=== PATIENT | female | born 1980 | race Caucasian/White ===

== ENCOUNTER 2018-12-05 16:17 | Emergency (ER) | payer OTHER, BC ==
[~2018-12-05] VITALS: Ht 170.2 cm; Wt 153.6 kg
[2018-12-05 16:41] VITALS: BP 138/102
[2018-12-05] MEDS ORDERED: ibuprofen tablet 400 MG TABLET PO ONE (17:45)
== END 2018-12-05 18:38 | disposition home or self-care (01) ==
LOC: ER 16:18
DX: S16.1XXA Strain of muscle, fascia and tendon at neck level, initial encounter (principal); S13.4XXA Sprain of ligaments of cervical spine, initial encounter; M54.5 Low back pain; E11.9 Type 2 diabetes mellitus without complications; V49.88XA Car occupant (driver) (passenger) injured in other specified transport accidents, initial encounter; Y93.89 Activity, other specified; Y92.413 State road as the place of occurrence of the external cause; Y99.9 Unspecified external cause status
CPT/HCPCS: 99282

== ENCOUNTER 2019-04-23 11:51 | Emergency (ER) | payer BC, OTHER ==
[~2019-04-23] VITALS: Ht 165.1 cm; Wt 134.0 kg
[2019-04-23 11:55] VITALS: BP 165/106
[2019-04-23] MEDS ORDERED: SULF1TAB49 PO (13:22)
[2019-04-23] MEDS ORDERED: CEPH500C5 PO (13:22)
[2019-04-23] MEDS ORDERED: IBUP-1984 PO (13:30)
== END 2019-04-23 13:44 | disposition home or self-care (01) ==
LOC: ER 11:52
DX: L02.212 Cutaneous abscess of back [any part, except buttock and flank] (principal); L03.312 Cellulitis of back [any part except buttock and flank]; E11.9 Type 2 diabetes mellitus without complications
CPT/HCPCS: 99284

== ENCOUNTER 2019-11-10 04:07 | Outpatient (CLI) | payer BC | END 2019-11-10 23:59 | disposition home or self-care (01) | LOC: DIABETIC 04:07 | PROVIDERS: ATTEND Specialist | DX: E11.65 Type 2 diabetes mellitus with hyperglycemia (principal); Z79.84 Long term (current) use of oral hypoglycemic drugs | CPT/HCPCS: G0108 ==

== ENCOUNTER 2022-11-10 20:31 | Emergency (ER) | payer BC ==
[~2022-11-10] VITALS: Ht 170.2 cm; Wt 168.8 kg
[2022-11-10 21:00] LABS: BASOPHILS # (AUTO) 0.2 X10'3 (0-0.2); BASOPHILS % (AUTO) 1.1 % (0-1); EOSINOPHILS # (AUTO) 0.2 X10'3 (0-0.9); EOSINOPHILS % (AUTO) 1.4 % (0-6); HEMATOCRIT 37.4 % (35.0-45.0); HEMOGLOBIN 12.7 g/dl (12.0-16.0); LYMPHOCYTES % (AUTO) 20.8 % (21-51); MEAN CORPUSCULAR HEMOGLOBIN 27.8 PG (27.0-31.0); MEAN CORPUSCULAR HGB CONC 33.9 g/dL (33.0-36.5); MEAN CORPUSCULAR VOLUME 82.2 FL (78-98); MEAN PLATELET VOLUME 7.6 FL (7.4-10.4); MONOCYTES % (AUTO) 6.6 % (2-12); NEUTROPHILS # (AUTO) 10.1 X10'3 (1.8-7.7); NEUTROPHILS % (AUTO) 70.1 % (42-75); PLATELET COUNT 361 X10'3 (140-440); RED BLOOD COUNT 4.55 X10'6 (4.20-5.60); RED CELL DISTRIBUTION WIDTH 16.2 % (11.5-14.5); WHITE BLOOD COUNT 14.4 X10'3 (4.5-11.0)
[2022-11-10 21:07] LABS: ALANINE AMINOTRANSFERASE 44 U/L (12-78); ALBUMIN 3.2 G/DL (3.4-5.0); ALBUMIN/GLOBULIN RATIO 0.8 (1.1-1.5); ALKALINE PHOSPHATASE 61 IU/L (46-116); ANION GAP 8 (8-16); ASPARTATE AMINO TRANSFERASE 25 U/L (10-37); BILIRUBIN,TOTAL 0.3 MG/DL (0.1-1.0); BLOOD UREA NITROGEN 12 MG/DL (7-18); BUN/CREATININE RATIO 13.2 (6.6-38.0); CALCIUM 9.4 MG/DL (8.5-10.1); CHLORIDE 99 MMOL/L (99-107); CREATININE 0.91 MG/DL (0.40-0.90); GLUCOSE 164 MG/DL (70-104); POTASSIUM 3.6 MMOL/L (3.5-5.1); SODIUM 134 MMOL/L (135-145); TOTAL PROTEIN 7.2 G/DL (6.4-8.2); eGFR 67 ML/MIN
[2022-11-10 21:13] LABS: MAGNESIUM 1.5 MG/DL (1.5-2.4)
[2022-11-10 22:40] LABS: LIPASE 92 U/L (73-393)
[2022-11-10] MEDS ORDERED: ketorolac trometh. 30mg/ml inj. IV ONE (23:10)
[2022-11-10 23:28] LABS: D-DIMER 0.52 MG/L FEU (0-0.50)
[2022-11-10] MEDS ORDERED: iohexol 350MG/ML 100ml bottle IV ONE (23:36)
[2022-11-11 00:47] VITALS: BP 118/72
== END 2022-11-11 00:55 | disposition home or self-care (01) ==
LOC: ER 20:31
DX: R07.89 Other chest pain (principal); E11.9 Type 2 diabetes mellitus without complications; I10 Essential (primary) hypertension; Z79.899 Other long term (current) drug therapy
CPT/HCPCS: 36415; 71045; 71275; 80053; 83690; 83735; 83880; 84484; 85025; 85379; 85610; 93005; 96374; 99285; J1885; Q9967